=== PATIENT | female | born 1995 | race Caucasian/White ===

== ENCOUNTER → 2017-06-08 | Outpatient (CLI) | payer OTHER, MEDICAID ==
[~2017-06-08] MED LIST: DOCU-131 PO; IBUP-1222 PO; NITR100C56 PO; PREN1TAB27 PO
== END | disposition home or self-care (01) ==
LOC: CFH 09:48
PROVIDERS: ATTEND Physician Assistant
DX: B18.2 Chronic viral hepatitis C (principal); K59.00 Constipation, unspecified
CPT/HCPCS: 76705